=== PATIENT | female | born 2000 | race Two or more races ===

== ENCOUNTER 2024-11-02 03:32 | Emergency (ER) | payer MEDICAID, OTHER ==
[~2024-11-02] VITALS: Ht 152.4 cm; Wt 59.6 kg
--- NOTE | 2024-11-02 03:37 | ED.PDOC ---
Back pain HPI HPI Comments THIS IS A 6 WEEK 24-YEAR-OLD FEMALE PRESENTS TO THE ED CHIEF COMPLAINT OF RIGHT UPPER THIGH PAIN.. SHE NOTES PAIN STARTED 3 DAYS AGO GRADUALLY GETTING WORSE. REPORTS NO KNOWN INJURY. STATES PAIN STARTS IN THE PROXIMAL THIGH SOMETIMES SHOOTS DOWN TO HER KNEE WORSE WITH SITTING DOWN. HAS NOT TRIED ANY RELIEF MEASURES. 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 History Family History Family History: Reviewed,noncontributory to illness Social History Smoker: Non-Smoker Alcohol: Denies ETOH Use Drugs: Denies Drug Use Constitutional: denies: chills, diaphoresis, fatigue, fever, malaise, sweats, weakness, others EENTM: denies: blurred vision, double vision, ear bleeding, ear discharge, ear drainage, ear pain, ear ringing, eye pain, eye redness, hearing loss, mouth pain, mouth swelling, nasal discharge, nose bleeding, nose congestion, nose pain, photophobia, tearing, throat pain, throat swelling, voice changes, others Respiratory: denies: cough, hemoptysis, orthopnea, SOB at rest, shortness of breath, SOB with excertion, stridor, wheezing, others Cardiovascular: denies: chest pain, dizzy spells, diaphoresis, Dyspnea on exertion, edema, irregular heart beat, left arm pain, lightheadedness, palpitations, PND, syncope, others Gastrointestinal: denies: abdomen distended, abdominal pain, blood streaked bowels, constipated, diarrhea, dysphagia, difficulty swallowing, hematemesis, melena, nausea, poor appetite, poor fluid intake, rectal bleeding, rectal pain, vomiting, others Genitourinary: denies: abnormal vagina bleeding, burning, dyspareunia, dysuria, flank pain, frequency, hematuria, incontinence, pain, , vagina discharge, urgency, others Neurological: denies: dizziness, fainting, headache, left sided numbness, left sided weakness, numbness, paresthesia, pre-existing deficit, right sided numbness, right sided weakness, seizure, speech problems, tingling, tremors, weakness, others Musculoskeletal: reports: muscle pain, muscle stiffness; denies: back pain, gout, joint pain, joint swelling, neck pain, others Integumetry: denies: bruises, change in color, change in hair/nails, dryness, laceration, lesions, lumps, rash, wounds, others Allergic/Immunocompromised: denies: Difficulty Healing, Frequent Infections, Hives, Itching, others Hematologic/Lymphatic: denies: anemia, blood clots, easy bleeding, easy bruising, swollen glands, others Endocrine: denies: excessive hunger, excessive sweating, excessive thirst, excessive urination, flushing, intolerance to cold, intolerance to heat, unexplained weight gain, unexplained weight loss, others Psychiatric: denies: anxiety, bipolar disorder, depression, hopeless, panic disorder, schizophrenia, sleepless, suicidal, others Physical Exam General Appearance: No Apparent Distress, Normal HEENT: Pharynx Normal Neck: Full Range of Motion, Non-Tender Respiratory: Lungs Clear, No Respiratory Distress, Normal Breath Sounds Cardiovascular: No Murmur, Normal Peripheral Pulses, Regular Rate/Rhythm Breast Exam: Deferred Gastrointestinal: Non Tender, Soft Genitalia: Deferred Pelvic: Deferred Rectal: Deferred Extremities: No calf tenderness, Normal capillary refill, Normal inspection, Normal range of motion, Non-tender, No pedal edema Musculoskeletal : Location: Left Extremity Location: Thigh (PROXIMAL THIGH TENDERNESS ON PALPATION NO NOTED ERYTHEMA, EDEMA, LESIONS. STRENGTH SENSORY MOTION INTACT POSITIVE POPLITEAL, AND PEDAL PULSE) Apperance: Normal Neurologic: Alert, No Motor Deficits, Normal Affect, Normal Mood, No Sensory Deficits Cerebellar Function: Normal Reflexes: Normal Skin: Dry, Normal Color, Warm Lymphatic: No Adenopathy Was a procedure done? Was a procedure done?: No Back Pain Differential Dx Differential Diagnosis: Fracture, Musculoskeletal Pain, Strain X-Ray, Labs, Meds, VS Current Medications Medications (Trade) Dose Ordered Sig/Priyank Route Start Time Stop Time Status Last Admin Acetaminophen (Tylenol Tablet Or Capsule) 1,000 mg ONCE ONCE PO 11/02/24 04:00 11/02/24 04:01 11/02/24 03:54 X-Ray, Labs, Meds, VS Comment PATIENT GIVEN TORADOL AND 1 G P.O. REPORTS IMPROVEMENT IN SYMPTOMS REQUESTING DISCHARGE AT THIS TIME. ADVISED TO CONSIDER [id number] RELIEF MEASURES SUCH ICE, HEAT, TIGER BALM, MASSAGE, 10S UNIT AND [id number] TYLENOL PER LABELED DOSING INSTRUCTIONS NEEDED. ADVISED TO FOLLOW UP WITH HER PCP IN 2 DAYS ER RETURN PRECAUTIONS GIVEN PATIENT INDICATES UNDERSTANDING AGREES WITH DISCHARGE PLAN OF CARE Time of 1ST Reevaluation: 03:36 Reevaluation 1ST: Unchanged Time of 2ND Reevaluation: 04:00 Reevaluation 2ND: Improved Patient Education/Counseling: Diagnosis, Treatment, Prognosis, Need For Follow Up Family Education/Counseling: No Family Present SEPSIS Sepsis Screen Physician Orders Acetaminophen Tab Or Cap (Tylenol Tablet (11/02/24 04:00) Medications Medications Dose Ordered Sig/Priyank Route Start Time Stop Time Status Last Admin Dose Admin Acetaminophen 1,000 mg ONCE ONCE PO 11/02/24 04:00 11/02/24 04:01 11/02/24 03:54 Departure 1 Departure Time of Disposition: 03:55 Impression: Primary Impression: Muscle strain of thigh Qualified Codes: S76.911A - Strain of unspecified muscles, fascia and tendons at thigh level, right thigh, initial encounter Disposition: 01 HOME / SELF CARE / HOMELESS Condition: Stable Discharged With: Self Critical Care Note Critical Care Time?: No Stability Stability form required: EVELIO Peraza Nov 02, 2024 03:37
[2024-11-02] MEDS: ACETAMINOPHEN 500 MG TAB or CAP PO ONE (03:54)
[2024-11-02 04:00] VITALS: BP 115/86; PULSE 104; RESP 16; TEMP 98.4; O2SAT 98
== END 2024-11-02 04:00 | disposition home or self-care (01) ==
LOC: ER 03:32
DX: O9A.211 Injury, poisoning and certain other consequences of external causes complicating pregnancy, first trimester (principal); S76.911A Strain of unspecified muscles, fascia and tendons at thigh level, right thigh, initial encounter; Z3A.01 Less than 8 weeks gestation of pregnancy; X58.XXXA Exposure to other specified factors, initial encounter; Y93.89 Activity, other specified; Y92.89 Other specified places as the place of occurrence of the external cause; Y99.8 Other external cause status